=== PATIENT | male | born 1960 | race Hispanic/Latino ===

== ENCOUNTER → 2023-04-04 07:12 | Outpatient (REF) | payer OTHER, SELFPAY ==
[2023-04-04 08:22] LABS: Urine Protein 166 mg/dl (0-12)
[2023-04-04 08:27] LABS: Albumin 4.2 g/dl (3.5-5.0); Blood Urea Nitrogen 33 mg/dl (9-20); Carbon Dioxide 25 mmol/L (22-30); Chloride 101 mmol/L (98-107); Glucose 101 mg/dl (70-99); Phosphorus 4.1 mg/dl (2.5-4.5); Potassium 5.3 mmol/L (3.5-5.1); Sodium 138 mmol/L (135-145); eGFR 57.18
== END ==
LOC: REG 07:12
PROVIDERS: ATTENDING PHYSICIAN Internal Medicine
DX: R80.9 Proteinuria, unspecified (principal)
CPT/HCPCS: 36415; 80069; 82570; 84156

== ENCOUNTER → 2023-05-03 07:10 | Outpatient (REF) | payer OTHER, SELFPAY ==
[2023-05-03 09:19] LABS: Albumin 4.4 g/dl (3.5-5.0); Blood Urea Nitrogen 35 mg/dl (9-20); Calcium 9.5 mg/dl (8.4-10.2); Carbon Dioxide 23 mmol/L (22-30); Chloride 105 mmol/L (98-107); Glucose 115 mg/dl (70-99); Phosphorus 3.4 mg/dl (2.5-4.5); Potassium 5.5 mmol/L (3.5-5.1); Sodium 139 mmol/L (135-145); eGFR 57.18
== END ==
LOC: CLINIC 07:10
PROVIDERS: ATTENDING PHYSICIAN Internal Medicine
DX: N18.31 Chronic kidney disease, stage 3a (principal)
CPT/HCPCS: 36415; 80069

== ENCOUNTER → 2023-05-29 07:26 | Outpatient (REF) | payer OTHER, SELFPAY ==
[2023-05-29 08:15] LABS: Hematocrit 30.5 % (39.0-52.0); Hemoglobin 10.3 g/dL (13.0-18.0); Mean Corp Hgb Conc. 33.8 g/dL (33.0-37.0); Mean Corpuscular Hgb 27.8 pg (27.0-31.0); Mean Corpuscular Volume 82.2 fL (80.0-94.0); Mean Platelet Volume 9.6 fL (7.4-10.4); Platelet Count 338 10^3/uL (130-400); Red Blood Cell Count 3.71 10^6/uL (4.70-6.10); White Blood Cell Count 7.7 10^3/uL (4.8-10.8)
[2023-05-29 08:42] LABS: Glycohemoglobin (HgbA1c) 7.9 % (4.0-5.6)
[2023-05-29 08:47] LABS: ALT (SGPT) 16 U/L (0-50); AST (SGOT) 14 U/L (17-59); Albumin 4.4 g/dl (3.5-5.0); Alkaline Phosphatase 79 U/L (38-126); Blood Urea Nitrogen 30 mg/dl (9-20); Calcium 9.5 mg/dl (8.4-10.2); Carbon Dioxide 23 mmol/L (22-30); Chloride 102 mmol/L (98-107); Glucose 150 mg/dl (70-99); HDL Cholesterol 35 mg/dl; Potassium 5.1 mmol/L (3.5-5.1); Sodium 137 mmol/L (135-145); Total Bilirubin 0.3 mg/dl (0.2-1.3); Total Cholesterol 150 mg/dl (50-199); Total Protein 7.2 g/dl (6.3-8.2); eGFR 57.18
[2023-05-29 08:51] LABS: Triglyceride 464 mg/dl (10-149)
[2023-05-29 09:13] LABS: LDL Cholesterol, Direct 60 mg/dl
[2023-05-29 09:43] LABS: Vitamin B12 427 pg/ml (239-931)
== END ==
LOC: REG 07:26
PROVIDERS: ATTENDING PHYSICIAN Nurse Practitioner Adult Health
DX: E11.9 Type 2 diabetes mellitus without complications (principal); E78.1 Pure hyperglyceridemia; D64.9 Anemia, unspecified; E53.8 Deficiency of other specified B group vitamins
CPT/HCPCS: 36415; 80053; 80061; 82607; 83036; 83721; 85027

== ENCOUNTER → 2023-07-04 06:50 | Outpatient (REF) | payer OTHER, SELFPAY ==
[2023-07-04 08:22] LABS: Albumin 4.6 g/dl (3.5-5.0); Blood Urea Nitrogen 62 mg/dl (9-20); Calcium 9.5 mg/dl (8.4-10.2); Carbon Dioxide 20 mmol/L (22-30); Chloride 107 mmol/L (98-107); Glucose 128 mg/dl (70-99); Phosphorus 4.2 mg/dl (2.5-4.5); Sodium 139 mmol/L (135-145); eGFR 19.72
[2023-07-04 08:24] LABS: Protein/creatinine Ratio 1.5; Urine Protein 87 mg/dl
== END ==
LOC: REG 06:50
PROVIDERS: ATTENDING PHYSICIAN Internal Medicine; FAMILY PHYSICIAN Nurse Practitioner Adult Health
DX: I10 Essential (primary) hypertension (principal); N18.31 Chronic kidney disease, stage 3a; E11.9 Type 2 diabetes mellitus without complications; D64.9 Anemia, unspecified; R80.9 Proteinuria, unspecified
CPT/HCPCS: 36415; 80069; 82570; 84156

== ENCOUNTER 2023-07-09 22:11 | Inpatient (IN) | payer OTHER, SELFPAY ==
[2023-07-09 17:58] VITALS: BMI 34.2
[2023-07-09 18:04] VITALS: BP 123/83
[2023-07-09 19:31] VITALS: BP 155/71
[2023-07-09 19:35] LABS: % Basophils 0.8 % (0-2); % Eosinophils 3.3 % (0-6); % Immature Granulocytes 0.4 % (0-0.5); % Monocytes 8.5 % (1.7-9.3); Absolute Basophils 0.1 10^3/uL (0-0.2); Absolute Eosinophils 0.2 10^3/uL (0-0.7); Absolute Lymphocytes 1.7 10^3/uL (1.2-3.4); Absolute Monocytes 0.6 10^3/uL (0.1-0.6); Absolute Neutrophils 4.6 10^3/uL (1.4-6.5); Hematocrit 24.6 % (39.0-52.0); Hemoglobin 8.8 g/dL (13.0-18.0); Mean Corp Hgb Conc. 35.8 g/dL (33.0-37.0); Mean Corpuscular Hgb 29.8 pg (27.0-31.0); Mean Corpuscular Volume 83.4 fL (80.0-94.0); Mean Platelet Volume 9.4 fL (7.4-10.4); Nucleated Red Blood Cells % 0 % (-); Platelet Count 291 10^3/uL (130-400); Red Blood Cell Count 2.95 10^6/uL (4.70-6.10); Urine Albumin Trace (Neg - Trace); Urine Bilirubin Negative (Negative); Urine Character Clear (Clear); Urine Color Yellow; Urine Glucose 3+ (Negative); Urine Ketone Negative (Negative); Urine Leukocyte Negative (Negative); Urine Nitrite Negative (Negative); Urine Occult Blood Negative (Negative); Urine Specific Gravity 1.015 (<1.030); Urine Urobilinogen Negative (Neg - 1+); White Blood Cell Count 7.2 10^3/uL (4.8-10.8)
[2023-07-09 19:56] LABS: ALT (SGPT) 17 U/L (0-50); AST (SGOT) 15 U/L (17-59); Albumin 4.2 g/dl (3.5-5.0); Alkaline Phosphatase 139 U/L (38-126); Blood Urea Nitrogen 59 mg/dl (9-20); Calcium 8.7 mg/dl (8.4-10.2); Carbon Dioxide 19 mmol/L (22-30); Chloride 104 mmol/L (98-107); Estimated Creatinine Clearance 39 ml/min; Glucose 258 mg/dl (70-99); Potassium 5.5 mmol/L (3.5-5.1); Sodium 134 mmol/L (135-145); Total Bilirubin 0.2 mg/dl (0.2-1.3); eGFR 27.21
[2023-07-09 20:00] VITALS: BP 151/71
--- NOTE | 2023-07-09 20:00 | ED.GENMED ---
History of Present Illness
General
Chief Complaint: Abnormal Lab Value
Source: patient and family
Exam Limitations: none
Time Seen by Provider: 07/09/23 19:03
Nursing documentation reviewed up to this point in time: agreed with
Travel History
Have you had any contact with someone who has COVID-19?: No
Do you have any symptoms of coronavirus? Fever > 100 degrees, chills, cough, shortness of breath, sore throat, loss of taste or smell, muscle aches, or headache?: No
History of Present Illness
History of Present Illness:
Patient states (through son) that he was sent to ED for elevated protein in his urine. States he is diabetic, hx htn. Follows with nephrology through clinic. Stage III kidney disease. He was seen in clinic on Friday and had labs drawn.
Called on Friday and advised to come to ED. He states he was advised to come to ED for proteinuria, however Creat 3.4, BUN 62, K 6.0 is noted in chem results. Brought to ED by son and spouse.
Past History
Past History
ED Past Medical History: HTN, Hypercholesterolemia, NIDDM and Renal failure
Social History
Tobacco: Non-smoker
Alcohol: None
Drug: None
Phy Exam
General Physical Exam
General Presentation: well appearing and no apparent distress
General age: appears stated age
General Skin: warm and dry
General Habitus: normal
General Mental: alert
General Hydration: appears well hydrated
Gastrointestinal Exam
Gastrointestinal Exam: normal bowel sounds, non tender, soft and no pulsatile mass
Musculoskeletal Exam
Musculoskeletal Exam: full ROM and neuro vasc intact
Skin Exam
Skin Exam: normal color, warm/dry and no rash
Psychiatric Exam
Psychiatric Exam: normal mood/affect
Course
Orders/Labs/Results
Orders:
Orders
07/09/23 19:28
Complete Blood Count/With Diff Urgent
Comprehensive Metabolic Panel Urgent
Urinalysis Urgent
Date Specimen was Collected: 07/09/23
Time Specimen was Collected: 19:04
07/09/23 20:21
Bladder Scan- Treatment ONCE
07/09/23 20:48
Renal Only US [US Renal Only W/O Bladder] Urgent
Comment:
Reason For Exam: RITU
07/09/23 20:55
NEPHROLOGY CONSULT Urgent
Consulting Provider: Juan Shoemaker V.
Was physician already notified: Yes
07/09/23 21:40
Admit/Transfer Patient As Directed
Co-Sign Provider:
Level of Care: Inpatient admission
Assign to:: Medical/Surgical
Physician / Group: Gunnar
Diagnosis: RITU
Reason for Hospitalization: RITU
Expected length of stay greater than two midnights?: Yes
ELOS- Estimated Length of Stay in days: 2
I certify the patient meets the requirements for IP care: Yes
07/09/23 21:42
Code Status As Directed
Resuscitation Status: Full Code
Abnormal Lab Results
07/09/23
19:28
RBC 2.95 L 10^6/uL
(4.70-6.10)
Hgb 8.8 L g/dL
(13.0-18.0)
Hct 24.6 L %
(39.0-52.0)
Sodium 134 L mmol/L
(135-145)
Potassium 5.5 H mmol/L
(3.5-5.1)
Carbon Dioxide 19 L mmol/L
(22-30)
BUN 59 H mg/dl
(9-20)
Creatinine 2.6 H mg/dL
(0.7-1.3)
Glucose 258 H mg/dl
(70-99)
AST 15 L U/L
(17-59)
Alkaline Phosphatase 139 H U/L
(38-126)
Urine Glucose 3+ A
(Negative)
07/09/23 19:28
07/09/23 19:28
Vital Signs
Initial and Last Documented VS:
Initial Vital Signs
Temp Pulse Resp BP Pulse Ox
98.3 F 84 20 123/83 97
07/09/23 18:04 07/09/23 18:04 07/09/23 18:04 07/09/23 18:04 07/09/23 18:04
Last Documented Vital Signs
Temp Pulse Resp BP Pulse Ox
98.3 F 87 17 151/71 96
07/09/23 18:04 07/09/23 20:13 07/09/23 20:13 07/09/23 20:13 07/09/23 21:19
*Radiology
Radiology exam reviewed: radiology read reviewed
*Pulse Oximetry
Patient hypoxic: no
*Critical Care Note
Total Time (30-74mins, 75-104mins- exclusive of procedures): Not Applicable
Update Note
Update Note:
Patient sent to ED by Dr. Olivera for admission for worsening RITU. Creat Fri 3.4, today 2.6. Dr. Shoemaker notified of patient status via tiger text. Requesting renal US and admission.
ED Attending Note
-
Portions of this chart may have been created with voice recognition software.� Occasional wrong word or��sound alike� substitutions may have occurred due to the inherent limitations of voice recognition software.
Discharge Plan
Departure
Patient Disposition: Admit
Date of Disposition: 07/09/23
Time of Disposition: 20:52
Presentation/result/management discussed w/ accepting MD/DO: Hospitalist
Patient with high blood pressure during this ER visit?: Yes
Condition: Fair
Covid-19: Not Applicable
Discharge Problem:
RITU (acute kidney injury)
Prescriptions:
No Action
losartan 50 mg Tablet
50 mg PO BID
atorvastatin 20 mg Tablet
20 mg PO QPM
amlodipine 10 mg Tablet
10 mg PO DAILY
omega 3-mhw-iqr-fish oil [Fish Oil] 1,000 mg (120 mg-180 mg) Capsule
1 cap PO DAILY
furosemide 20 mg tablet
20 mg PO MOWEFR
cyanocobalamin (vitamin B-12) [Vitamin B-12] 1,000 mcg Tablet
1,000 mcg PO DAILY
carvedilol 3.125 mg Tablet
9.375 mg PO BID
ferrous sulfate 325 mg (65 mg iron) Tablet
325 mg PO DAILY
insulin glargine [Basaglar KwikPen U-100 Insulin] 100 unit/mL (3 mL) Insulin Pen
21 unit SC BID
Referrals:
NONE,* [Family Provider] -
Interventions
Interventions:
*Risk Screen - Suicide Last Done: 07/09/23 18:04
*General Assessment Last Done: 07/09/23 18:04
*Neglect/Abuse Screening Last Done: 07/09/23 18:04
ED- Fall Risk Assessment Last Done: 07/09/23 19:29
*ED COVID-19 Vaccine History Last Done: 07/09/23 19:29
Discharge Date and Time
Print Language: VIETNAMESE
[2023-07-09 20:13] VITALS: BP 151/71
[2023-07-09 21:19] VITALS: BP 162/72
--- NOTE | 2023-07-09 21:53 | HPS.HSE ---
Family Physician
-
Family Physician: * NONE
Chief Complaint
-
Abnormal Labs
History of Present Illness
Patient is a 62y M with PMH significant for hypertension and DM-II who presents to ED at the direction of his Electrical Unit Rebuilder for evaluation of abnormal labs. History obtained from patient and his family at the bedside. Patient was recently seen
by Nephrology with whom he follows for CKD III. He had labs done on Friday of last week and as called early this week and informed of abnormal results. He was advised to present to the ED for further evaluation.
Patient states that he was informed he had a large amount of protein in his urine. His labs indicate significant change in his SCr from his known baseline.
Patient states that he feels very well and he has no current complaints.
His newest medication is finerenone which he started taking about 3 months ago. He was advised to discontinue this yesterday.
Medical History
Past Medical History
Past Medical History: Reports Other
Additional Past Medical History:
Hypertension
DM-II
Obesity
Lumbar DDD
Dyslipidemia
Past Surgical History: Reports Other
Additional Past Surgical History:
Lumbar Lami / Fusion
Social History
Tobacco: Non-smoker
Alcohol: None
Drug: None
Family History
Family History: Diabetes and Hypertension
Allergies / Home Medications
Allergies reflects when Allergies were last updated in [email or web address].
Home Medications with original date entered in [email or web address]
Allergy/Medication List:
Allergies
Allergy/AdvReac Type Severity Reaction Status Date / Time
No Known Allergies Allergy Verified 07/09/23 18:04
Home Medications
amlodipine 10 mg tablet 10 mg PO DAILY 03/18/22
atorvastatin 20 mg tablet 20 mg PO QPM 03/18/22
losartan 50 mg tablet 50 mg PO BID 03/18/22
omega 6-tuq-wax-fish oil 1,000 mg (120 mg-180 mg) capsule (Fish Oil) 1 cap PO DAILY 03/18/22
carvedilol 3.125 mg tablet 9.375 mg PO BID 07/09/23
cyanocobalamin (vitamin B-12) 1,000 mcg tablet (Vitamin B-12) 1,000 mcg PO DAILY 07/09/23
ferrous sulfate 325 mg (65 mg iron) tablet 325 mg PO DAILY 07/09/23
furosemide 20 mg tablet 20 mg PO MOWEFR 07/09/23
insulin glargine 100 unit/mL (3 mL) subcutaneous pen (Basaglar KwikPen U-100 Insulin) 21 unit SC BID 07/09/23
Review of Systems
-
History Source: Patient and Family
A 12 point ROS was completed and negative except as noted: Yes
Constitutional: Denies Fever, Fatigue or Chills
Respiratory: Denies Cough or Trouble Breathing
Cardiac: Denies Chest Pain or Palpitations
Abdomen/GI: Reports Constipated; Denies Abdominal Pain, Nausea, Vomiting or Diarrhea
: Denies Dysuria, Frequency or Flank Pain
Musculoskeletal: Reports Edema (slight ankle edema)
Neurological: Denies Dizzy or Headache
Psych: Denies Depression or Anxiety
Physical Exam
Vital Signs
Vital Signs
Temp Pulse Resp BP Pulse Ox
98.3 F 87 17 151/71 96
07/09/23 18:04 07/09/23 20:13 07/09/23 20:13 07/09/23 20:13 07/09/23 21:19
Physical Exam
General: Other (62y M in no acute distress.)
HEENT: Moist mucous membranes and Other (Thick neck.)
Respiratory: Clear; No Wheezes, Rales or Rhonchi
Cardiac: S1/S2 and Regular Rhythm; No Murmur
GI: Soft, Non Tender, Non Distended and Normal Bowel Sounds
Musculoskeletal: No Clubbing, No Cyanosis and No Edema
Neuro: AO x 3
Laboratory Results
-
07/09/23 19:
07/09/23 19:
Laboratory Results
Total Bilirubin 0.2 mg/dl (0.2-1.3) 07/09/23 19:
AST 15 U/L (17-59) L 07/09/23:
ALT 17 U/L (0-50) 07/09/23:
Alkaline Phosphatase 139 U/L (38-126) H 07/09/23:
Impression/Plan
-
A/P: Patient is a 62y M with PMH significant for HTN and DM-II who was sent to by his Electrical Unit Rebuilder for evaluation of abnormal outpatient labs.
RITU on CKD III
Proteinuria
Mild Hyperkalemia
- Admit for further evaluation and treatment.
- Baseline SCr = 1.4 (as recent as May 2023). Was 3.4 on 07/03 and 2.6 today.
- Prot:Creat ratio on recent outpatient labs was 1.5.
- Hold diuretics (Lasix and Farxiga), losartan and continue to hold finerenone.
- Gentle IVFs overnight.
- Follow BP closely and avoid hypotension.
- Check renal US.
- Check SPEP (especially with anemia).
- Nephrology eval for additional recommendations.
- Follow for improvement / return to known baseline.
Benign Hypertension
- Stable. Continue home meds with exception of losartan.
- Follow BP as noted above and adjust regimen a needed.
DM-II
- Hyperglycemic in the ED today.
- Hold Farxiga.
- Continue basal : bolus insulin regimen and adjust as needed for glycemic control.
- A1C was 7.9% last month.
Anemia
- Chronic / normocytic anemia - gradually worse from prior.
- No noted blood loss evident per patient.
- On supplemental iron (which he complains causes constipation).
- Check iron studies, retic count, etc. SPEP as noted above.
- Follow for changes.
Obesity due to excess calories and insulin resistance
- Affects all aspects of care.
- Encourage healthy diet and increased activity with goal of weight loss.
DVT Prophylaxis: SCDs
Code Status: Full
[2023-07-09 22:52] VITALS: BP 147/82; BMI 33.4
[2023-07-09] MEDS: SENOKOT PO (23:01)
[2023-07-09] MEDS: NSS 1000 IV (23:01)
[2023-07-09 23:34] LABS: Glucose - Point of Care 157 mg/dl (70-99)
[2023-07-09 23:35] LABS: Reticulocyte Count 1.7 % (0.4-2.8)
--- NOTE | 2023-07-09 23:45 | PTCARENOTE ---
Received pt from ED Alert/awake and Neurologically intact. Patient is primarily Persian speaking but does understand Setswana. Metal Fitter phone used to assist with admission questions and orientation to unit. Vital signs are stable. Patient denies
any pain.
[2023-07-09 23:47] LABS: Iron 56 ug/dl (49-181)
[2023-07-09 23:56] LABS: Percent Saturation 21 % (20-50); Total Iron Binding Capacity 265 ug/dl (261-462)
[2023-07-10 03:44] LABS: TSH Reflex To Free T4 2.77 uIU/ml (0.47-4.68)
[2023-07-10 04:10] LABS: Vitamin B12 618 pg/ml (239-931)
[2023-07-10 05:30] LABS: Hematocrit 25.5 % (39.0-52.0); Hemoglobin 8.4 g/dL (13.0-18.0); Mean Corp Hgb Conc. 32.9 g/dL (33.0-37.0); Mean Corpuscular Hgb 28.2 pg (27.0-31.0); Mean Corpuscular Volume 85.6 fL (80.0-94.0); Mean Platelet Volume 9.3 fL (7.4-10.4); Platelet Count 259 10^3/uL (130-400); Red Blood Cell Count 2.98 10^6/uL (4.70-6.10); Red Cell Dist. Width 14.1 % (11.5-14.5); White Blood Cell Count 6.1 10^3/uL (4.8-10.8)
[2023-07-10 05:56] LABS: Blood Urea Nitrogen 53 mg/dl (9-20); Calcium 9.2 mg/dl (8.4-10.2); Carbon Dioxide 19 mmol/L (22-30); Chloride 110 mmol/L (98-107); Estimated Creatinine Clearance 42 ml/min; Glucose 100 mg/dl (70-99); Magnesium 1.5 mg/dl (1.6-2.3); Phosphorus 4.1 mg/dl (2.5-4.5); Sodium 141 mmol/L (135-145); eGFR 29.95
[2023-07-10 05:58] VITALS: BMI 33.2
--- NOTE | 2023-07-10 07:16 | W.PN.HOSP.TC ---
Today's Communication/Plan
-
IVF bicarb gtt as per Nephro
monitor renal function
glycemic control
blood pressure control
Assessment / Plan
Assessment / Plan
Physical Exam
General: no acute distress obese appears comfortable.
HEENT: Moist mucous membranes and Other (Thick neck.)
Respiratory: Clear; No Wheezes, Rales or Rhonchi
Cardiac: S1/S2 and Regular Rhythm; No Murmur
GI: Soft, Non Tender, Non Distended and Normal Bowel Sounds
Musculoskeletal: No Clubbing, No Cyanosis and No Edema
Neuro: AO x 3
A/P: Patient is a 62y M with PMH significant for HTN and DM-II who was sent to by his Leather Finisher for evaluation of abnormal outpatient labs.
RITU on CKD III
Proteinuria
Mild Hyperkalemia
- Hold diuretics (Lasix and Farxiga), losartan and continue to hold finerenone.
- Nephro eval appreciated cont IVF hydration switched to Bicarb gtt
Benign Hypertension
- Stable. Continue home meds with exception of losartan.
- Follow BP as noted above and adjust regimen a needed.
DM-II
- Hyperglycemic in the ED today.
- Hold Farxiga.
- Continue basal : bolus insulin regimen and adjust as needed for glycemic control.
- A1C was 7.9% last month.
Anemia
- Chronic / normocytic anemia
- No obvious signs of blood loss
- On supplemental iron (which he complains causes constipation).
- monitor H&H
Obesity due to excess calories and insulin resistance
- Affects all aspects of care.
- Encourage healthy diet and increased activity with goal of weight loss.
Hypomagnesemia
-monitor and replete as necessary
DVT Prophylaxis: SCDs
Code Status: Full
Discussed with patient and his Rachel
I spent a total of 50 minutes with the patient or on the floor. More than 50% of this time involved counseling and coordination of care.
Anticipated Discharge: 24 - 48 hours
Subjective/Interval History
-
Date of Service: July 10, 2023
Seen and examined at bedside in no acute distress sitting up comfortably on bed. Rachel providing translation. Denies any new acute issues at this time. Reports overall feeling well. Denies dysuria retention.
Objective Data
-
Labs:
Laboratory Results
07/09/23 07/10/23
19:28 05:12
WBC 7.2 6.1
Hgb 8.8 L 8.4 L
Hct 24.6 L 25.5 L
Plt Count 291 259
Sodium 134 L 141
Potassium 5.5 H 5.0
Chloride 104 110 H
Carbon Dioxide 19 L 19 L
BUN 59 H 53 H
Creatinine 2.6 H 2.4 H
Glucose 258 H 100 H
Calcium 8.7 9.2
Total Bilirubin 0.2
AST 15 L
ALT 17
Alkaline Phosphatase 139 H
Vital Signs:
Vital Signs
Temp Pulse Resp BP Pulse Ox
97.8 F 81 18 147/82 99
07/09/23 22:52 07/09/23 22:52 07/09/23 22:52 07/09/23 22:52 07/09/23 22:52
I&O
07/09/23 07/10/23 07/11/23
06:59 06:59 06:59
Intake Total 560 / 560
Balance 560 / 560
[2023-07-10 07:55] VITALS: BP 146/76
[2023-07-10 08:21] LABS: Glucose - Point of Care 120 mg/dl (70-99)
[2023-07-10] MEDS: NOVOLOG FLEXPEN-MODERATE RESISTANCE SC ×2 (08:43→16:48)
[2023-07-10] MEDS: MAGNESIUM SULFATE 50 IV (08:54)
[2023-07-10] MEDS: COREG 9.375 MG PO ×2 (08:54→19:35)
[2023-07-10] MEDS: NORVASC 10 MG PO (08:55)
[2023-07-10] MEDS: LANTUS 0.200000000000000011 UNITS SC ×2 (08:55→21:09)
--- NOTE | 2023-07-10 09:37 | W.CON.NEPH ---
Consultation
-
Date/Time Consultation Requested: 07/09/232054
Date/Time Consultation Performed: 07/10/23 09
Requesting Provider: Vishnu Madrigal
Performing Provider: Chelo Castañeda
Reason for Consultation: RITU, hyperkalemia
Medical History
-
Chief Complaint: abnormal labs,RITU, hyperkalemia
History of Present Illness:
Patient is a 62y M with PMH significant for hypertension on coreg, Amlodipine, Losartan, DM-II on insulin with diabetic nephropathy biopsy in 02/2022 peak proteinuria was 20gm/gm of cr CKD [id number]( follows Dr Olivera in out pt) cr baseline 1.3-1.4,
who also started on Kerendia almost yr ago, lasix added in mar for hyperkalemia 3xweekly. later he saw PCP and started on Farxiga in Mar and labs remained stable in April and May. However on July 03 cr significantly elevated at 3.4, k 6, U PCR
better 1.5gm/gm of cr from 3.2gm/gm of cr. he was called on same day to come to hospital but since he felt well did not come. On further calls by his PCP and our office he finally came to ER yesterday. Cr now at 2.4, k better at 5. He notes no new
complaints. No CP or sob, abd pian, no n/v. No dizziness. History is limited always from him some of it could be language but even with guidance and control system engineer it is hard to communicate. His PVR reportedly at 50cc. No dysuria.
Past Medical History
Hypertension
DM-II
Obesity
Lumbar DDD
Dyslipidemia
Anemia
CKD 3a
Diabetic nephropathy-biopsy confirmed 02/2022
Past Surgical History: Other (Lumbar Lami / Fusion)
Social History
Tobacco: Non-Smoker
Alcohol: None
Drug: None
Personal:
Living: With Family
Employment: Employed (works in [email or web address])
Family History
no CKD
Family History: Not Pertinent
Allergies / Home Medications
Allergy/AdvReac Type Severity Reaction Status Date / Time
No Known Allergies Allergy Verified 07/09/23 18:04
�Medication �Instructions �Recorded �Confirmed �Type
amlodipine 10 mg tablet 10 mg PO DAILY 03/18/22 07/09/23 History
atorvastatin 20 mg tablet 20 mg PO QPM 03/18/22 07/09/23 History
losartan 50 mg tablet 50 mg PO BID 03/18/22 07/09/23 History
omega 8-hgf-ohe-fish oil 1,000 mg 1 cap PO DAILY 03/18/22 07/09/23 History
(120 mg-180 mg) capsule (Fish Oil)
carvedilol 3.125 mg tablet 9.375 mg PO BID 07/09/23 07/09/23 History
cyanocobalamin (vitamin B-12) 1,000 mcg PO DAILY 07/09/23 07/09/23 History
1,000 mcg tablet (Vitamin B-12)
ferrous sulfate 325 mg (65 mg 325 mg PO DAILY 07/09/23 07/09/23 History
iron) tablet
furosemide 20 mg tablet 20 mg PO MOWEFR 07/09/23 07/09/23 History
insulin glargine 100 unit/mL (3 21 unit SC BID 07/09/23 07/09/23 History
mL) subcutaneous pen (Basaglar
KwikPen U-100 Insulin)
Review of Systems
-
All complete 12 point ROS have been inquired and found negative other than stated in HPI
Physical Exam
Vital Signs
Vital Signs
Temp Pulse Resp BP Pulse Ox
97.9 F 72 16 146/76 99
07/10/23 07:55 07/10/23 07:55 07/10/23 07:55 07/10/23 07:55 07/10/23 07:55
Lab Results
WBC 6.1 10^3/uL (4.8-10.8) 07/10/23 05:12
RBC 2.98 10^6/uL (4.70-6.10) L 07/10/23 05:12
Hgb 8.4 g/dL (13.0-18.0) L 07/10/23 05:12
Hct 25.5 % (39.0-52.0) L 07/10/23 05:12
Plt Count 259 10^3/uL (130-400) 07/10/23 05:12
Sodium 141 mmol/L (135-145) 07/10/23 05:12
Potassium 5.0 mmol/L (3.5-5.1) 07/10/23 05:12
Chloride 110 mmol/L (98-107) H 07/10/23 05:12
Carbon Dioxide 19 mmol/L (22-30) L 07/10/23 05:12
BUN 53 mg/dl (9-20) H 07/10/23 05:12
Creatinine 2.4 mg/dL (0.7-1.3) H 07/10/23 05:12
eGFR 29.95 07/10/23 05:12
Glucose 100 mg/dl (70-99) H 07/10/23 05:12
Calcium 9.2 mg/dl (8.4-10.2) 07/10/23 05:12
Phosphorus 4.1 mg/dl (2.5-4.5) 07/10/23 05:12
Albumin 4.2 g/dl (3.5-5.0) 07/09/23 19:28
renal US:
Comparison: Renal ultrasound 01/02/2022
Findings: Right kidney measures 12.7 cm, and the left kidney measures 11.7 cm in length. Simple bilateral renal cysts are present measuring up to 1.4 cm on the right and 1.6 cm on the left. No hydronephrosis, contour deforming solid renal mass or
echogenic shadowing foci to suggest renal calculi.
IMPRESSION:
1. Essentially unremarkable renal ultrasound, as detailed above.
Physical Exam
General: Awake, Alert, Oriented, AOx3, No Distress and Nontoxic
HEENT: EOMI, Anicteric and Conjunctivae Clear
Respiratory: Clear, Normal Excursion and Nonlabored Respirations
Cardiac: S1/S2 and Regular Rate/Rhythm
Breast: Deferred by me
Abdomen: Soft, Nontender and Nondistended
Musculoskeletal: No Cyanosis and No Edema
Skin: No Rash
Neuro: Nonfocal/Grossly Intact
Psych: Mood/afflect pleasant, Insight/judgement good and Appropriate
Data Reviewed
-
Radiology: Report Reviewed by me and Discussed with Patient
Labs: Labs Reviewed by me, Discussed with Nurse and Discussed with Patient
Assessment/Plan
-
IMP;
RITU on CKD IIIa baseline cr 1.2-1.4.
Diabetic nephropathy -biopsy proven 02/2022
Mild Hyperkalemia
Benign Hypertension
DM-II
Acute on chr Anemia
Obesity due to excess calories
HLD
Plan:
A/w abnormal labs from out pt RITU and hyperkalemia
recent adjustment of meds , farxiga by PCP, lasix per nephro added in Mar
Prior to this he has been on Losartan and Kerendia(almost 1yr) for diabetic nephropathy
labs remained stable till May
RITU-suspect could be from medication related
UA is bland with U PCR 1.5gm/gm of cr, non acute renal US, PVR 50cc only
however need to r/o other causes, agree to check SPEP
also check UPEP
mild met acidosis-change to bicarb IVF
BP stable on coreg , Amlodipine
cont to hold ARB, Kerendia, lasix, Farxiga for now
anemia-previously had fe def-check fe panel, b12 is ok currently
If cr cont to improve probably ok for d/c in am from nephro point
Nephro will follow him out pt but it has been challenge to have communication with pt in out pt setting
Reinforced to the pt that he should answer the calls from Doc office
[2023-07-10 10:06] VITALS: BP 142/68; BP 146/73; BP 148/68; PULSE 73; PULSE 74; PULSE 80
--- NOTE | 2023-07-10 10:35 | CM ---
Patient seen bedside, initial assessment completed with assistance from son over the phone. Patient resides with is and son in a two story home, 5 steps to enter. Patient denies DME, VN, or SNF. Patient uses [facility] for [facility],
pharmacy [facility]. CM will continue to follow for all discharge planning needs.
Plan; home no needs anticipated.
[2023-07-10 10:53] LABS: Iron 67 ug/dl (49-181)
[2023-07-10 11:02] LABS: Percent Saturation 24 % (20-50); Total Iron Binding Capacity 277 ug/dl (261-462)
[2023-07-10] MEDS: SODIUM BICARBONATE 1075 MEQ IV ×2 (11:03→23:41)
[2023-07-10 11:24] LABS: Body Fluid for Eosinophils No Eosinophils seen
[2023-07-10 11:35] LABS: Glucose - Point of Care 247 mg/dl (70-99)
[2023-07-10] MEDS: NOVOLOG FLEXPEN-MODERATE RESISTANCE 3 UNITS SC (12:08)
[2023-07-10 15:58] VITALS: BP 159/79
[2023-07-10 16:39] LABS: Glucose - Point of Care 106 mg/dl (70-99)
[2023-07-10] MEDS: LIPITOR 20 MG PO (17:02)
[2023-07-10 21:01] LABS: Glucose - Point of Care 129 mg/dl (70-99)
[2023-07-10] MEDS: SENOKOT 17.1999999999999993 MG PO (21:11)
[2023-07-10 23:48] VITALS: BP 140/76
[2023-07-11 05:24] LABS: Hematocrit 25.6 % (39.0-52.0); Hemoglobin 8.7 g/dL (13.0-18.0); Mean Corpuscular Volume 82.3 fL (80.0-94.0); Mean Platelet Volume 9.1 fL (7.4-10.4); Platelet Count 295 10^3/uL (130-400); Red Blood Cell Count 3.11 10^6/uL (4.70-6.10); White Blood Cell Count 6.9 10^3/uL (4.8-10.8)
[2023-07-11 06:00] VITALS: BMI 33.1
[2023-07-11 06:11] LABS: Blood Urea Nitrogen 46 mg/dl (9-20); Calcium 9.6 mg/dl (8.4-10.2); Carbon Dioxide 23 mmol/L (22-30); Chloride 105 mmol/L (98-107); Estimated Creatinine Clearance 53 ml/min; Glucose 53 mg/dl (70-99); Magnesium 1.7 mg/dl (1.6-2.3); Phosphorus 3.7 mg/dl (2.5-4.5); Potassium 4.5 mmol/L (3.5-5.1); Sodium 141 mmol/L (135-145); eGFR 39.64
[2023-07-11 06:33] LABS: Glucose - Point of Care 94 mg/dl (70-99)
--- NOTE | 2023-07-11 06:36 | GLUCOSE ---
SITUATION: AM labs revealed glucose 53. Pt given 4oz OJ. Repeat accucheck 15 minutes later was 94.
--- NOTE | 2023-07-11 07:19 | W.PN.HOSP.TC ---
Today's Communication/Plan
-
discharge
Assessment / Plan
Assessment / Plan
Physical Exam
General: no acute distress obese appears comfortable.
HEENT: Moist mucous membranes and Other (Thick neck.)
Respiratory: Clear; No Wheezes, Rales or Rhonchi
Cardiac: S1/S2 and Regular Rhythm; No Murmur
GI: Soft, Non Tender, Non Distended and Normal Bowel Sounds
Musculoskeletal: No Clubbing, No Cyanosis and No Edema
Neuro: AO x 3
A/P: Patient is a 62y M with PMH significant for HTN and DM-II who was sent to by his Borough Coordinator for evaluation of abnormal outpatient labs.
RITU on CKD III
Proteinuria
Mild Hyperkalemia
- Hold diuretics (Lasix and Farxiga), losartan and continue to hold finerenone.
- Nephro eval appreciated cont IVF hydration switched to Bicarb gtt
-Cr since improved from initial 3.4 to current 1.9
Benign Hypertension
- Stable. Continue home meds with exception of losartan.
DM-II
- Hyperglycemic in the ED today.
- Hold Farxiga.
- Continue basal : bolus insulin regimen and adjust as needed for glycemic control.
- A1C was 7.9% last month.
Anemia
- Chronic / normocytic anemia
- No obvious signs of blood loss
- On supplemental iron (which he complains causes constipation).
- monitor H&H
Obesity due to excess calories and insulin resistance
- Affects all aspects of care.
- Encourage healthy diet and increased activity with goal of weight loss.
Hypomagnesemia
-monitor and replete as necessary
DVT Prophylaxis: SCDs
Code Status: Full
Medically stable for discharge home with outpatient follow up recommendations.
Discussed with patient, his Rachel, and son Steven
Total Time Preparing Discharge __50 minutes including examination of the patient, summary of the hospital stay, instructions for continuing care to all relevant caregivers; and preparation of discharge records, prescriptions, and referral
forms if necessary.
Anticipated Discharge: Today
Subjective/Interval History
-
Date of Service: July 11, 2023
No acute distress. Reports feeling well. Denies new acute issues at this time. Eager to go home
Objective Data
-
Labs:
Laboratory Results
07/11/23
05:11
WBC 6.9
Hgb 8.7 L
Hct 25.6 L
Plt Count 295
Sodium 141
Potassium 4.5
Chloride 105
Carbon Dioxide 23
BUN 46 H
Creatinine 1.9 H
Glucose 53 L*
Calcium 9.6
Vital Signs:
Vital Signs
Temp Pulse Resp BP Pulse Ox
97.9 F 72 18 140/76 98
07/10/23 23:48 07/10/23 23:48 07/10/23 23:48 07/10/23 23:48 07/10/23 23:48
I&O
07/10/23 07/11/23 07/12/23
06:59 06:59 06:59
Intake Total 560 / 560 705 / 705
Output Total 300 / 300
Balance 560 / 560 405 / 405
[2023-07-11 07:45] VITALS: BP 141/77; BP 157/66; BP 157/76; BP 166/74; PULSE 67; PULSE 74; PULSE 76
[2023-07-11 07:49] LABS: Glucose - Point of Care 78 mg/dl (70-99)
[2023-07-11 08:29] VITALS: BP 141/77; BP 157/76; BP 166/74; PULSE 67; PULSE 74; PULSE 76
[2023-07-11 08:30] VITALS: BP 157/66
[2023-07-11] MEDS: COREG 9.375 MG PO (08:34)
[2023-07-11] MEDS: NOVOLOG FLEXPEN-MODERATE RESISTANCE SC (08:34)
[2023-07-11] MEDS: LANTUS 0.200000000000000011 UNITS SC (08:35)
[2023-07-11] MEDS: NORVASC 10 MG PO (08:35)
--- NOTE | 2023-07-11 10:33 | CM ---
Patient seen with son and , hopeful for discharge today. Per Hospitalist, possible discharge if cleared by nephrology. Family updated. CM will continue to follow for discharge planning needs.
Plan; home no needs anticipated.
[2023-07-11 11:36] LABS: Glucose - Point of Care 240 mg/dl (70-99)
[2023-07-11] MEDS: SODIUM BICARBONATE 1075 MEQ IV (11:40)
[2023-07-11] MEDS: NOVOLOG FLEXPEN-MODERATE RESISTANCE 3 UNITS SC (11:49)
--- NOTE | 2023-07-11 14:01 | W.PN.NEPH.PH ---
Today's Communication / Plan
-
- dc
Assessment/Plan
-
IMP;
RITU on CKD IIIa baseline cr 1.2-1.4.
Diabetic nephropathy -biopsy proven 02/2022
Mild Hyperkalemia
Benign Hypertension
DM-II
Acute on chr Anemia
Obesity due to excess calories
HLD
Plan:
A/w abnormal labs from out pt RITU and hyperkalemia
recent adjustment of meds , farxiga by PCP, lasix per nephro added in Mar
Prior to this he has been on Losartan and Kerendia(almost 1yr) for diabetic nephropathy
labs remained stable till May
RITU-suspect could be from medication related
UA is bland with U PCR 1.5gm/gm of cr, non acute renal US, PVR 50cc only
however need to r/o other causes, SPEP/UPEP pending
okay to d/c fluids at this time
BP stable on coreg , Amlodipine
cont to hold ARB, Kerendia, lasix, Farxiga for now
anemia-previously had fe def-check fe panel, b12 is ok currently
Okay for d/c from neph standpoint
Nephro will follow him out pt but it has been challenge to have communication with pt in out pt setting. please obtain labs 1-2 weeks after discharge
Reinforced to the pt that he should answer the calls from Doc office
-
-
Date of Service: July 11, 2023
CC / HPI / ROS
-
Chief Complaint:
RITU
History of Present Illness:
Cr down to 1.9 this AM after stopping medications
Review of Systems:
likely for discharge today
feels well
Labs
-
Labs:
WBC 6.9 10^3/uL (4.8-10.8) 07/11/23 05:11
RBC 3.11 10^6/uL (4.70-6.10) L 07/11/23 05:11
Hgb 8.7 g/dL (13.0-18.0) L 07/11/23 05:11
Hct 25.6 % (39.0-52.0) L 07/11/23 05:11
Plt Count 295 10^3/uL (130-400) 07/11/23 05:11
Sodium 141 mmol/L (135-145) 07/11/23 05:11
Potassium 4.5 mmol/L (3.5-5.1) 07/11/23 05:11
Chloride 105 mmol/L (98-107) 07/11/23 05:11
Carbon Dioxide 23 mmol/L (22-30) 07/11/23 05:11
BUN 46 mg/dl (9-20) H 07/11/23 05:11
Creatinine 1.9 mg/dL (0.7-1.3) H 07/11/23 05:11
eGFR 39.64 07/11/23 05:11
Glucose 53 mg/dl (70-99) L* 07/11/23 05:11
Calcium 9.6 mg/dl (8.4-10.2) 07/11/23 05:11
Phosphorus 3.7 mg/dl (2.5-4.5) 07/11/23 05:11
Albumin 4.2 g/dl (3.5-5.0) 07/09/23 19:28
Physical Exam
-
Vital Signs:
Vital Signs
Temp Pulse Resp BP Pulse Ox
98.7 F 67 16 157/66 98
07/11/23 07:45 07/11/23 08:34 07/11/23 07:45 07/11/23 08:35 07/11/23 07:45
Cardiovascular:: Regular rate and rhythm
Respiratory:: Bilateral: CTA
Lung Excursion:: Normal
Abdomen:: Nontender and Soft
Bowel Sounds:: Normal
Extremity Edema:: None: Bilateral:
Ferraro Catheter: No
--- NOTE | 2023-07-11 14:38 | W.DCSUMMARY ---
Discharge Summary
Discharge Data
Date of Admission: 07/09/23
Date of Discharge: 07/11/23
-
Pending Results: Yes
Additional Pending Results:
urine immunology study results to be followed up with nephrology
Discharge Plan
-
Patient Disposition: Home (Routine Discharge)
Discharge Diagnosis/Procedures: Acute Kidney Injury on Chronic Kidney Disease Stage III
Hypertension
Diabetes
Anemia Chronic / normocytic anemia
Obesity
Condition: Good
Diet: Diabetic, Carb Controlled
Activity: As tolerated
Driving Restrictions: As prior to admission
Bathing Restrictions: None
Blood Work: Please obtain repeat BMP with primary care provider or nephrology in 1 week of discharge
Activity Restrictions/Additional Instructions:
Please follow up with primary care provider and Nephrology in 1 week of discharge.
Stop further use Losartan, Lasix, Kerendia (also known as finerenone), and Farxiga for now due to recent acute kidney injury. Follow up with primary care provider, nephrology, and/or other healthcare provider involved in your care before
considering to resume.
Please take medications as prescribed/recommended and follow up with primary care provider and/or other healthcare provider involved in your care for further adjustment to your medication regimen as necessary.
Referrals:
NONE,* [Family Provider] -
Chelo Olivera MD [Active] - in one week
Prescriptions:
Continued
atorvastatin 20 mg Tablet
20 mg PO QPM
amlodipine 10 mg Tablet
10 mg PO DAILY
omega 2-exq-kcj-fish oil [Fish Oil] 1,000 mg (120 mg-180 mg) Capsule
1 cap PO DAILY
cyanocobalamin (vitamin B-12) [Vitamin B-12] 1,000 mcg Tablet
1,000 mcg PO DAILY
carvedilol 3.125 mg Tablet
9.375 mg PO BID
ferrous sulfate 325 mg (65 mg iron) Tablet
325 mg PO DAILY
insulin glargine [Basaglar KwikPen U-100 Insulin] 100 unit/mL (3 mL) Insulin Pen
21 unit SC BID
Discontinued
losartan 50 mg Tablet
50 mg PO BID
furosemide 20 mg tablet
20 mg PO MOWEFR
Discharge Orders:
Discharge Patient (As Directed); Ordered 07/11/23
Ordered By: Bob Deleon
Discharge Date and Time
Print Language: SETSWANA
[2023-07-11 15:00] VITALS: BP 104/64
[2023-07-14 03:01] LABS: 24 Hour Urine Total Volume Random mL; Urine Collection Length Random hr; Urine Free Kappa Light Chains 123.25 mg/L (0.00-32.90); Urine Free Lambda Light Chains 39.32 mg/L (0.00-3.79)
[2023-07-15 03:30] LABS: Alpha 1 Globulin 0.27 g/dL (0.19-0.46); Alpha 2 Globulin 0.79 g/dL (0.48-1.05); SPEP IFE Reflex Not Done; Total Protein-Electrophoresis 6.5 g/dL (6.3-8.2)
== END 2023-07-11 15:08 | disposition home or self-care (01) | DRG 684 ==
LOC: 4 EAST ACU 22:11
PROVIDERS: Nurse Practitioner; ADMITTING PHYSICIAN Hospitalist; ATTENDING PHYSICIAN Internal Medicine; EMERGENCY PHYSICIAN Emergency Medicine; OTHER PHYSICIAN Internal Medicine
DX: N17.9 Acute kidney failure, unspecified (principal); N18.31 Chronic kidney disease, stage 3a; E87.5 Hyperkalemia; D64.9 Anemia, unspecified; E66.09 Other obesity due to excess calories; E83.42 Hypomagnesemia; E78.00 Pure hypercholesterolemia, unspecified; Z68.33 Body mass index [BMI] 33.0-33.9, adult
CPT/HCPCS: 51798; 76775; 80048; 80053; 81003; 81099; 82607; 82728; 82962; 83521; 83540; 83550; 83735; 84100; 84155; 84156; 84165; 84443; 85025; 85027; 85045; 86335; 99285; J7030

== ENCOUNTER → 2023-07-19 07:15 | Outpatient (REF) | payer OTHER, SELFPAY ==
[2023-07-19 08:47] LABS: Blood Urea Nitrogen 31 mg/dl (9-20); Calcium 9.2 mg/dl (8.4-10.2); Carbon Dioxide 23 mmol/L (22-30); Chloride 102 mmol/L (98-107); Glucose 133 mg/dl (70-99); Sodium 135 mmol/L (135-145); eGFR 33.24
== END ==
LOC: REG 07:15
PROVIDERS: ATTENDING PHYSICIAN Nurse Practitioner Adult Health; REFERRING PHYSICIAN Internal Medicine
DX: N17.9 Acute kidney failure, unspecified (principal); E11.22 Type 2 diabetes mellitus with diabetic chronic kidney disease; N18.30 Chronic kidney disease, stage 3 unspecified
CPT/HCPCS: 36415; 80048

== ENCOUNTER → 2023-08-02 07:03 | Outpatient (REF) | payer OTHER, SELFPAY ==
[2023-08-02 09:13] LABS: Blood Urea Nitrogen 27 mg/dl (9-20); Calcium 9.6 mg/dl (8.4-10.2); Carbon Dioxide 24 mmol/L (22-30); Chloride 105 mmol/L (98-107); Glucose 132 mg/dl (70-99); Sodium 141 mmol/L (135-145); eGFR 52.64
== END ==
LOC: CLINIC 07:03
PROVIDERS: ATTENDING PHYSICIAN Nurse Practitioner Adult Health; REFERRING PHYSICIAN Internal Medicine
DX: N18.31 Chronic kidney disease, stage 3a (principal); N17.9 Acute kidney failure, unspecified
CPT/HCPCS: 36415; 80048

== ENCOUNTER → 2023-08-09 07:14 | Outpatient (REF) | payer OTHER, SELFPAY ==
[2023-08-09 08:47] LABS: Urine Protein 106 mg/dl (0-12)
[2023-08-09 08:49] LABS: Blood Urea Nitrogen 36 mg/dl (9-20); Calcium 9.7 mg/dl (8.4-10.2); Carbon Dioxide 24 mmol/L (22-30); Chloride 104 mmol/L (98-107); Glucose 64 mg/dl (70-99); Sodium 140 mmol/L (135-145); eGFR 48.72
== END ==
LOC: REG 07:14
PROVIDERS: ATTENDING PHYSICIAN Nurse Practitioner Adult Health
DX: I10 Essential (primary) hypertension (principal); N18.31 Chronic kidney disease, stage 3a; N17.9 Acute kidney failure, unspecified; R80.9 Proteinuria, unspecified
CPT/HCPCS: 80048; 82570; 84156

== ENCOUNTER → 2024-03-18 10:27 | Outpatient (REF) | payer OTHER, SELFPAY ==
[2024-03-18 11:08] LABS: Hemoglobin 11.1 g/dL (13.0-18.0); Mean Corp Hgb Conc. 32.6 g/dL (33.0-37.0); Mean Corpuscular Hgb 26.8 pg (27.0-31.0); Mean Corpuscular Volume 82.1 fL (80.0-94.0); Mean Platelet Volume 9.7 fL (7.4-10.4); Platelet Count 349 10^3/uL (130-400); Red Blood Cell Count 4.14 10^6/uL (4.70-6.10); Red Cell Dist. Width 14.2 % (11.5-14.5)
[2024-03-18 11:30] LABS: Glycohemoglobin (HgbA1c) 9.5 % (4.0-5.6)
[2024-03-18 12:25] LABS: ALT (SGPT) 17 U/L (0-50); AST (SGOT) 17 U/L (17-59); Alkaline Phosphatase 90 U/L (38-126); Blood Urea Nitrogen 29 mg/dl (9-20); Calcium 9.1 mg/dl (8.4-10.2); Carbon Dioxide 29 mmol/L (22-30); Chloride 98 mmol/L (98-107); Glucose 149 mg/dl (70-99); Potassium 4.8 mmol/L (3.5-5.1); Sodium 134 mmol/L (135-145); Total Bilirubin 0.1 mg/dl (0.2-1.3); Total Protein 6.8 g/dl (6.3-8.2); eGFR 48.41
[2024-03-18 12:48] LABS: Vitamin B12 276 pg/ml (239-931)
[2024-03-18 15:07] LABS: Microalbumin, Random Urine > 57.0 mg/dl (0.6-1.7)
== END ==
LOC: CLINIC 10:27
PROVIDERS: ATTENDING PHYSICIAN Nurse Practitioner Adult Health
DX: I10 Essential (primary) hypertension (principal); N18.31 Chronic kidney disease, stage 3a; E11.22 Type 2 diabetes mellitus with diabetic chronic kidney disease; E87.5 Hyperkalemia; D64.9 Anemia, unspecified; R80.9 Proteinuria, unspecified
CPT/HCPCS: 36415; 80053; 82043; 82570; 82607; 83036; 85027

== ENCOUNTER → 2024-05-15 08:34 | Outpatient (REF) | payer OTHER, SELFPAY ==
[2024-05-15 09:49] LABS: % Eosinophils 1.8 % (0-6); % Immature Granulocytes 0.5 % (0-0.5); % Lymphocytes 20.4 % (20.5-51.1); % Monocytes 9.4 % (1.7-9.3); % Neutrophils 66.9 % (42.2-75.2); Absolute Basophils 0.1 10^3/uL (0-0.2); Absolute Eosinophils 0.1 10^3/uL (0-0.7); Absolute Lymphocytes 1.2 10^3/uL (1.2-3.4); Absolute Monocytes 0.6 10^3/uL (0.1-0.6); Hematocrit 35.5 % (39.0-52.0); Hemoglobin 11.2 g/dL (13.0-18.0); Mean Corp Hgb Conc. 31.5 g/dL (33.0-37.0); Mean Corpuscular Hgb 26.5 pg (27.0-31.0); Mean Corpuscular Volume 83.9 fL (80.0-94.0); Mean Platelet Volume 9.4 fL (7.4-10.4); Nucleated Red Blood Cells % 0 % (-); Platelet Count 314 10^3/uL (130-400); Red Blood Cell Count 4.23 10^6/uL (4.70-6.10); Red Cell Dist. Width 14.4 % (11.5-14.5)
[2024-05-15 09:58] LABS: Urine Albumin 4+ (Neg - Trace); Urine Bilirubin Negative (Negative); Urine Character Clear (Clear); Urine Color Yellow; Urine Glucose Negative (Negative); Urine Ketone Negative (Negative); Urine Leukocyte Negative (Negative); Urine Nitrite Negative (Negative); Urine Occult Blood 2+ (Negative); Urine Specific Gravity 1.005 (<1.030); Urine Urobilinogen Negative (Neg - 1+)
[2024-05-15 10:18] LABS: Urine Bacteria Few (Negative); Urine White Cell 0-2 /HPF (0-5)
[2024-05-15 10:33] LABS: ALT (SGPT) 18 U/L (0-50); AST (SGOT) 16 U/L (17-59); Albumin 4.4 g/dl (3.5-5.0); Alkaline Phosphatase 93 U/L (38-126); Blood Urea Nitrogen 22 mg/dl (9-20); Calcium 9.4 mg/dl (8.4-10.2); Carbon Dioxide 29 mmol/L (22-30); Chloride 102 mmol/L (98-107); Glucose 65 mg/dl (70-99); HDL Cholesterol 46 mg/dl; LDL Cholesterol, Calculated 101 mg/dl; Phosphorus 3.4 mg/dl (2.5-4.5); Sodium 139 mmol/L (135-145); Total Bilirubin 0.4 mg/dl (0.2-1.3); Total Cholesterol 226 mg/dl (50-199); Triglyceride 398 mg/dl (10-149); Very Low Density Lipoprotein 79 mg/dl (0-30); eGFR 48.41
[2024-05-15 10:42] LABS: Intact PTH 115.4 pg/ml (13.6-85.8)
[2024-05-15 10:46] LABS: Protein/creatinine Ratio 16.7; Urine Protein 492 mg/dl
== END ==
LOC: CLINIC 08:34
PROVIDERS: ATTENDING PHYSICIAN Internal Medicine; FAMILY PHYSICIAN Family Medicine
DX: I10 Essential (primary) hypertension (principal); E11.22 Type 2 diabetes mellitus with diabetic chronic kidney disease; E87.5 Hyperkalemia; E78.1 Pure hyperglyceridemia; R80.9 Proteinuria, unspecified
CPT/HCPCS: 36415; 80053; 80061; 81003; 81015; 82570; 83036; 83970; 84100; 84156; 85025

== ENCOUNTER → 2024-06-19 08:30 | Outpatient (REF) | payer OTHER, SELFPAY ==
[2024-06-19 10:38] LABS: Albumin 4.4 g/dl (3.5-5.0); Blood Urea Nitrogen 37 mg/dl (9-20); Calcium 9.3 mg/dl (8.4-10.2); Carbon Dioxide 19 mmol/L (22-30); Chloride 109 mmol/L (98-107); Glucose 169 mg/dl (70-99); Phosphorus 3.4 mg/dl (2.5-4.5); Potassium 5.6 mmol/L (3.5-5.1); Sodium 141 mmol/L (135-145); eGFR 33.04
== END ==
LOC: CLINIC 08:30
PROVIDERS: ATTENDING PHYSICIAN Internal Medicine; FAMILY PHYSICIAN Nurse Practitioner Adult Health
DX: R80.9 Proteinuria, unspecified (principal)
CPT/HCPCS: 36415; 80069

== ENCOUNTER → 2024-07-17 07:15 | Outpatient (REF) | payer OTHER, SELFPAY ==
[2024-07-17 08:21] LABS: Albumin 4.3 g/dl (3.5-5.0); Blood Urea Nitrogen 34 mg/dl (9-20); Calcium 9.5 mg/dl (8.4-10.2); Carbon Dioxide 23 mmol/L (22-30); Chloride 108 mmol/L (98-107); Glucose 194 mg/dl (70-99); Phosphorus 3.1 mg/dl (2.5-4.5); Potassium 4.9 mmol/L (3.5-5.1); Sodium 141 mmol/L (135-145); eGFR 39.39
[2024-07-17 08:38] LABS: Protein/creatinine Ratio 13.7; Urine Protein 397 mg/dl
== END ==
LOC: REG 07:15
PROVIDERS: ATTENDING PHYSICIAN Internal Medicine
DX: R80.9 Proteinuria, unspecified (principal)
CPT/HCPCS: 80069; 82570; 84156

== ENCOUNTER → 2024-09-04 07:12 | Outpatient (REF) | payer OTHER, SELFPAY ==
[2024-09-04 09:13] LABS: Albumin 4.4 g/dl (3.5-5.0); Blood Urea Nitrogen 31 mg/dl (9-20); Calcium 10.0 mg/dl (8.4-10.2); Carbon Dioxide 21 mmol/L (22-30); Chloride 108 mmol/L (98-107); Glucose 185 mg/dl (70-99); Potassium 5.1 mmol/L (3.5-5.1); Sodium 140 mmol/L (135-145); eGFR 42.03
[2024-09-04 09:21] LABS: Vitamin D, 25-OH*** 19.3 ng/mL (30-80)
[2024-09-04 11:04] LABS: Glycohemoglobin (HgbA1c) 8.0 % (4.0-5.6)
== END ==
LOC: REG 07:12
PROVIDERS: ATTENDING PHYSICIAN Internal Medicine; FAMILY PHYSICIAN Family Medicine
DX: I10 Essential (primary) hypertension (principal); R80.9 Proteinuria, unspecified; D64.9 Anemia, unspecified; N17.9 Acute kidney failure, unspecified; E11.22 Type 2 diabetes mellitus with diabetic chronic kidney disease; N18.5 Chronic kidney disease, stage 5
CPT/HCPCS: 36415; 80069; 82306; 83036

== ENCOUNTER 2024-11-09 09:22 | Emergency (ER) | payer SELFPAY ==
[2024-11-09 09:33] VITALS: BP 152/81
[2024-11-09 10:00] LABS: Hematocrit 31.2 % (39.0-52.0); Hemoglobin 10.2 g/dL (13.0-18.0); Mean Corp Hgb Conc. 32.7 g/dL (33.0-37.0); Mean Corpuscular Volume 82.3 fL (80.0-94.0); Nucleated Red Blood Cells % 0 % (-); Platelet Count 317 10^3/uL (130-400); Red Cell Dist. Width 13.9 % (11.5-14.5)
[2024-11-09 10:21] LABS: COVID-19 Antigen Negative (Negative)
[2024-11-09 10:35] LABS: ALT (SGPT) 22 U/L (0-50); AST (SGOT) 17 U/L (17-59); Albumin 3.9 g/dl (3.5-5.0); Alkaline Phosphatase 103 U/L (38-126); Blood Urea Nitrogen 21 mg/dl (9-20); Calcium 9.3 mg/dl (8.4-10.2); Carbon Dioxide 25 mmol/L (22-30); Chloride 103 mmol/L (98-107); Glucose 294 mg/dl (70-99); Lipase 80 U/L (23-300); Potassium 5.3 mmol/L (3.5-5.1); Sodium 135 mmol/L (135-145); Total Protein 6.9 g/dl (6.3-8.2); eGFR 36.81
[2024-11-09 11:20] VITALS: BMI 35.5
--- NOTE | 2024-11-09 12:03 | ED.GENMED ---
History of Present Illness
General
Chief Complaint: Abdominal Symptoms
Source: patient
Exam Limitations: none
Time Seen by Provider: 11/09/24 11:26
History of Present Illness
History of Present Illness:
see MDM
Past History
Past History
ED Past Medical History: HTN, Hypercholesterolemia, NIDDM and Renal failure
Social History
Tobacco: Non-smoker
Alcohol: None
Drug: None
Phy Exam
Physical Exam
Physical Exam:
GENERAL: Alert , in no apparent distress
EYE: pupils equal and reactive
NECK: Supple
ENT: o/p clr, mmm.
CARDIAC: Regular rate and rhythm .
LUNGS: Clear breath sounds bilaterally, no acute respiratory distress, no wheezes/rales/rhonchi
ABDOMEN: Soft, OBESE, without focal tenderness, no r/g, no cvat, normal bowel sounds
NEUROLOGICAL: Alert and oriented, no focal neuro deficits
SKIN: Warm and dry, skin intact.
MUSCULOSKELETAL: No edema, well perfused. neg adolph's sign
PSYCH: Normal and appropriate interaction.
Course
Orders/Labs/Results
Orders:
Orders
11/09/24 09:41
COVID-19 Antigen Urgent
Source: Nasal Swab
Complete Blood Count/With Diff Urgent
Comprehensive Metabolic Panel Urgent
Lipase Urgent
11/09/24 12:02
Iohexol [Omnipaque] See Protocol PO NOW STA
11/09/24 12:03
CT Abd/pel (oral only)-DH Only Urgent
Comment:
Reason For Exam: diabetic, diarrhea
11/09/24 13:46
Norovirus by PCR Urgent
JENNIFER Source: Feces/Stool
Specimen Description:
Date Specimen was Collected: 11/09/24
Time Specimen was Collected: 13:45
STOOL [C difficile Antigen & Toxins] Urgent
JENNIFER Source: Feces/Stool
Specimen Description:
Date Specimen was Collected: 11/09/24
Time Specimen was Collected: 13:45
Stool Culture Urgent
JENNIFER Source: Feces/Stool
Specimen Description:
Date Specimen was Collected: 11/09/24
Time Specimen was Collected: 13:45
11/09/24 15:18
Loperamide [Imodium] 2 mg PO NOW STA
Abnormal Lab Results
11/09/24
09:41
RBC 3.79 L 10^6/uL
(4.70-6.10)
Hgb 10.2 L g/dL
(13.0-18.0)
Hct 31.2 L %
(39.0-52.0)
MCH 26.9 L pg
(27.0-31.0)
MCHC 32.7 L g/dL
(33.0-37.0)
Abs Immat Gran (auto) 0.2 H 10^3/uL
(0-0.05)
Absolute Lymphs (auto) 1.0 L 10^3/uL
(1.2-3.4)
Absolute Monos (auto) 1.1 H 10^3/uL
(0.1-0.6)
Immature Gran % 1.7 H %
(0-0.5)
Lymphocytes % 11.6 L %
(20.5-51.1)
Monocytes % 12.3 H %
(1.7-9.3)
Potassium 5.3 H mmol/L
(3.5-5.1)
BUN 21 H mg/dl
(9-20)
Creatinine 2.0 H mg/dL
(0.7-1.3)
Glucose 294 H mg/dl
(70-99)
11/09/24 09:41
11/09/24 09:41
Vital Signs
Initial and Last Documented VS:
Initial Vital Signs
Temp Pulse Resp BP Pulse Ox
36.9 C 77 18 152/81 97
11/09/24 09:11/09/24 09:11/09/24 09:33 11/09/24 09:11/09/24 09:33
Last Documented Vital Signs
Temp Pulse Resp BP Pulse Ox
36.9 C 77 18 152/81 97
11/09/24 09:33 11/09/24 09:33 11/09/24 09:33 11/09/24 09:33 11/09/24 12:37
MDM/Problems Addressed
Differential Diagnosis Includes:
see MDM
MDM/Problems Addressed:
Note:
CHIEF COMPLAINT(S)
Diarrhea and fever.
HISTORY OF PRESENT ILLNESS
The patient is a 64-year-old male h/o IDDM, htn, hld, ckd
fever, bodyaches x 3 days last week, resolved 3 days ago but started with profuse watery dairrhea, and has had 20-30 episodes daily for a few days
no significant abd pain
no persistent fever
denies blood in stool
pt feels dehydrated
The patient denies recent antibiotic use, stomach surgeries, or recent travel outside the country. He is diabetic, and his diabetes management might have affected his kidney function slightly, but there have not been specific heart-related issues
mentioned. The patient remains uncertain if there is any improvement in symptoms or any direct correlation with any specific dietary or environmental changes.
SOCIAL DETERMINANTS AFFECTING HEALTH
The patient mentions diabetes as a part of his chronic conditions and, implied through conversation, may face associated management challenges influencing his day-to-day life.
CHRONIC MEDICAL CONDITIONS SIGNIFICANTLY AFFECTING CARE
1. Diabetes
SOCIAL HISTORY
The patient is diabetic, which indicates a potentially significant influence of diet and general health management on his condition. There is no mention of smoking, alcohol, or drug use.
PLAN
1. Obtain a stool sample for laboratory analysis to assess potential causes of diarrhea.
2. Perform a computed tomography (CT) scan of the abdomen to further evaluate the gastrointestinal status.
3. Check for COVID-19 as part of broader differential diagnostics.
4. Continue monitoring fluid intake to address dehydration concerns.
DIFFERENTIAL DIAGNOSIS
The Differential Diagnosis includes, in no particular order and is not limited to:
1. Viral gastroenteritis
2. Bacterial gastroenteritis
3. Clostridium difficile infection
4. Non-infectious diarrhea secondary to diabetic complications
5. Medication-induced diarrhea
6. Inflammatory bowel disease
7. Irritable bowel syndrome
8. Diverticulitis
9. Colitis
10. COVID-19 infection
64 y/o M
diabetic, CKD
4 5 days ago started with fevers and bodyaches without any URI symptoms. Then he developed diarrhea which has been persistent. He is going 20-30 times a day. It is watery nonbloody and none foul-smelling diarrhea. He has not been on antibiotics
recently. He has never had any history of C. difficile. Patient has not had any recent travel. There is no blood in the stool.
On exam he has no focal abdominal tenderness. Given his diabetes, he will orally prep the patient with contrast for CT scan, stool studies were ordered, I did do without IV contrast due to his low GFR.
1500
CT shows no signs obstruction
c diff neg
norovirus pending
pt had 7-8 episdoes here
he is well apearing
ct neg for colitis
will give him 1 dose imodium
suspect norovirus
pt aware to use sparingly
brat diet
return precatuions
(avoid bananas, potassium 5.3)
*Pulse Oximetry
SaO2: 97
Oxygen Mode of Delivery: Room air
Patient hypoxic: no (97)
*Critical Care Note
Total Time (30-74mins, 75-104mins- exclusive of procedures): Not Applicable
ED Attending Note
-
Portions of this chart may have been created with voice recognition software.� Occasional wrong word or��sound alike� substitutions may have occurred due to the inherent limitations of voice recognition software.
Discharge Plan
Departure
Patient Disposition: Home (Routine Discharge)
Date of Disposition: 11/09/24
Time of Disposition: 15:16
Patient with high blood pressure during this ER visit?: Yes
Discharge Problem:
Diarrhea
Instructions: Diarrhea in adults - ED (DC)
Prescriptions:
New
loperamide [Imodium A-D] 2 mg capsule
2 mg PO Q6H PRN (Reason: loose stool) Qty: 12 0RF
No Action
atorvastatin 20 mg Tablet
20 mg PO QPM
amlodipine 10 mg Tablet
10 mg PO DAILY
omega 5-nra-hkh-fish oil [Fish Oil] 1,000 mg (120 mg-180 mg) Capsule
1 cap PO DAILY
cyanocobalamin (vitamin B-12) [Vitamin B-12] 1,000 mcg Tablet
1,000 mcg PO DAILY
carvedilol 3.125 mg Tablet
9.375 mg PO BID
ferrous sulfate 325 mg (65 mg iron) Tablet
325 mg PO DAILY
insulin glargine [Basaglar KwikPen U-100 Insulin] 100 unit/mL (3 mL) Insulin Pen
21 unit SC BID
Referrals:
Darryl Morel MD [Family Provider, Family Practice] - Follow up in 2-3 days
Activity Restrictions/Additional Instructions:
YOUR DIARRHEA IS PROBABLY A VIRUS
DRINK FLUIDS TO STAY HYDRATED
TAKE IMODIUM 1 TAB 2-3 TIMES A DAY NEEDED FOR DIARRHEA STOOLS
THIS CAN CAUSE CONSTIPATION, DO NOT TAKE IT UNLESS DIARRHEA CONTINUES TO BE SEVERE
RETURN FOR: SEVERE PAIN, FEVER, BLOODY DIARRHEA, OR ANY CONCERNS.
PAGAN DIARREA PROBABLEMENTE SEA UN VIRUS
ISABEL L�QUIDOS PARA MANTENERSE HIDRATADO
TOME 1 COMPRIMIDO DE IMODIUM 2-3 VECES AL D�A SEG�N SEA NECESARIO PARA LAS HECES CON DIARREA
ESTRE�IMIENTO. NO LO TOME A MENOS QUE LA DIARREA CONTIN�E SIENDO GRAVE.
REGRESE SI TIENE: DOLOR INTENSO, FIEBRE, DIARREA CON LISANDRA O CUALQUIER OTRA INQUIETUD.
Interventions
Interventions:
*Risk Screen - Suicide Last Done: 11/09/24 09:33
*General Assessment Last Done: 11/09/24 11:20
*Neglect/Abuse Screening Last Done: 11/09/24 11:20
*ED- Fall Risk Assessment Last Done: 11/09/24 12:00
UD-Nzqrtv-Zwpyluvutd Assessment Last Done: 11/09/24 11:19
Discharge Date and Time
Print Language: LAO
[2024-11-09] MEDS: OMNIPAQUE 50 ML PO (12:12)
[2024-11-09] MEDS: IMODIUM 2 MG PO (15:42)
== END 2024-11-09 15:44 | disposition home or self-care (01) ==
LOC: EMR 09:22
PROVIDERS: EMERGENCY PHYSICIAN Emergency Medicine; FAMILY PHYSICIAN Family Medicine
DX: R19.7 Diarrhea, unspecified (principal); I12.9 Hypertensive chronic kidney disease with stage 1 through stage 4 chronic kidney disease, or unspecified chronic kidney disease; E11.22 Type 2 diabetes mellitus with diabetic chronic kidney disease; N18.9 Chronic kidney disease, unspecified; E78.00 Pure hypercholesterolemia, unspecified; Z79.4 Long term (current) use of insulin; Z11.52 Encounter for screening for COVID-19
CPT/HCPCS: 99284; 74176; 80053; 83690; 85025; 87045; 87046; 87324; 87427; 87449; 87798; 87811

== ENCOUNTER → 2024-12-18 07:09 | Outpatient (REF) | payer OTHER, SELFPAY ==
[2024-12-18 08:01] LABS: Hematocrit 34.8 % (39.0-52.0); Hemoglobin 11.0 g/dL (13.0-18.0); Mean Corp Hgb Conc. 31.6 g/dL (33.0-37.0); Mean Corpuscular Volume 83.9 fL (80.0-94.0); Platelet Count 297 10^3/uL (130-400); Red Cell Dist. Width 15.2 % (11.5-14.5)
[2024-12-18 09:08] LABS: Albumin 4.7 g/dl (3.5-5.0); Blood Urea Nitrogen 46 mg/dl (9-20); Calcium 9.7 mg/dl (8.4-10.2); Carbon Dioxide 20 mmol/L (22-30); Chloride 107 mmol/L (98-107); Glucose 135 mg/dl (70-99); Potassium 5.7 mmol/L (3.5-5.1); Sodium 138 mmol/L (135-145); eGFR 29.58
[2024-12-18 09:15] LABS: Vitamin D, 25-OH*** 35.2 ng/mL (30-80)
== END ==
LOC: CLINIC 07:09
PROVIDERS: ATTENDING PHYSICIAN Internal Medicine
DX: N18.32 Chronic kidney disease, stage 3b (principal); E55.9 Vitamin D deficiency, unspecified
CPT/HCPCS: 36415; 80069; 82306; 82570; 83970; 84156; 85027

== ENCOUNTER → 2025-02-02 08:48 | Outpatient (REF) | payer OTHER, SELFPAY ==
[2025-02-02 11:15] LABS: Albumin 4.4 g/dl (3.5-5.0); Blood Urea Nitrogen 30 mg/dl (9-20); Calcium 9.3 mg/dl (8.4-10.2); Carbon Dioxide 28 mmol/L (22-30); Chloride 101 mmol/L (98-107); Glucose 131 mg/dl (70-99); Potassium 4.2 mmol/L (3.5-5.1); Sodium 137 mmol/L (135-145); eGFR 39.15
== END ==
LOC: CLINIC 08:48
PROVIDERS: ATTENDING PHYSICIAN Internal Medicine; FAMILY PHYSICIAN Nurse Practitioner Adult Health
DX: N18.32 Chronic kidney disease, stage 3b (principal)
CPT/HCPCS: 36415; 80069